=== PATIENT | male | born 1990 | race Caucasian/White ===

== ENCOUNTER 2024-02-17 11:26 | Inpatient (IN) | payer OTHER ==
[2024-02-17 11:57] VITALS: BMI 24.7
[2024-02-17] MEDS ORDERED: ACETAMINOPHEN 325 MG TABLET (FP) PO PRN ×2 (13:13→13:15)
[2024-02-17] MEDS ORDERED: IBUPROFEN 400 MG TABLET (FP) PO PRN ×2 (13:13→13:15)
[2024-02-17] MEDS ORDERED: POLYETHYLENE GLYCOL (HEALTHYLAX) 3350 17 GM PACKET PO PRN ×2 (13:13→13:15)
[2024-02-17] MEDS ORDERED: BENZONATATE 200 MG CAPSULE PO PRN (13:13)
[2024-02-17] MEDS ORDERED: NALOXONE HCL 0.4 MG/ML VIAL IM PRN ×2 (13:13→13:15)
[2024-02-17] MEDS ORDERED: guaiFENesin 600 MG TABLET.ER (FP) PO PRN ×2 (13:13→13:15)
[2024-02-17] MEDS ORDERED: IBUPROFEN 600 MG TABLET (FP) PO PRN ×2 (13:13→13:15)
[2024-02-17] MEDS ORDERED: ONDANSETRON *ODT* 4 MG TABLET SL PRN ×2 (13:13→13:15)
[2024-02-17] MEDS ORDERED: BISMUTH SUBSALICYLATE 524 MG/30 ML PO PRN ×2 (13:13→13:15)
[2024-02-17] MEDS ORDERED: DICYCLOMINE HCL 10 MG CAPSULE PO PRN ×2 (13:13→13:15)
[2024-02-17] MEDS ORDERED: LOPERAMIDE HCL 2 MG CAPSULE PO PRN ×2 (13:13→13:15)
[2024-02-17] MEDS ORDERED: MAG HYDROX/AL HYDROX/SIMETH 30 ML UNIT-DOSE CUP PO PRN ×2 (13:13→13:15)
[2024-02-17] MEDS ORDERED: NALOXONE HCL (KLOXXADO) 8 MG SPRAY NS PRN ×2 (13:13→13:15)
[2024-02-17] MEDS ORDERED: MAGNESIUM HYDROX 2400MG/30ML ORAL SUSPENSION 30 ML CUP PO PRN ×2 (13:13→13:15)
[2024-02-17] MEDS ORDERED: BENZOCAINE/MENTHOL (CHLORASEPTIC ) LOZENGE MM PRN (13:15)
[2024-02-17] MEDS ORDERED: METHOCARBAMOL 500 MG TABLET PO PRN (13:15)
[2024-02-17] MEDS ORDERED: hydrOXYzine PAMOATE 25 MG CAPSULE (FP) PO PRN (13:15)
[2024-02-17] MEDS: METHOCARBAMOL 500 MG TABLET PO PRN (14:34)
[2024-02-17] MEDS: cloNIDine HCL 0.1 MG TABLET PO SCH (14:34)
[2024-02-17] MEDS: methaDONE HCL 10 MG TABLET (FOR DETOX USE ONLY) PO ONE (14:35)
[2024-02-17] MEDS: BUPRENORPHINE/NALOXONE 0.5 MG/0.125 MG FILM SL ONE ×2 (14:37→22:15)
[2024-02-17] MEDS: hydrOXYzine PAMOATE 25 MG CAPSULE (FP) PO PRN (15:51)
[2024-02-17] MEDS ORDERED: THIAMINE 100 MG TABLET PO SCH (22:00)
[2024-02-17] MEDS ORDERED: MELATONIN 5 MG TABLETS PO SCH (22:00)
[2024-02-17] MEDS: MELATONIN 5 MG TABLETS PO SCH (22:14)
[2024-02-17] MEDS: THIAMINE 100 MG TABLET PO SCH (22:14)
[2024-02-18] MEDS: predniSONE 20 MG TABLET (UD) PO SCH (09:55)
[2024-02-18] MEDS: PRENATAL VITAMINS W/ FOLIC ACID TABLET (FP) PO SCH (09:55)
[2024-02-18] MEDS: BUPRENORPHINE/NALOXONE 0.5 MG/0.125 MG FILM SL SCH (09:56)
[2024-02-18] MEDS ORDERED: PRENATAL VITAMINS W/ FOLIC ACID TABLET (FP) PO SCH (10:00)
[2024-02-18 11:03] LABS: HEMATOCRIT 40.2 % (35.4-49); HEMOGLOBIN 13.1 GM/dL (11.7-16.9); MCH 27.7 pg (25.7-33.7); MCHC 32.6 g/dl (32.0-35.9); MEAN CELL VOLUME 84.7 fl (80-96); PLATELET COUNT 344 10^3/uL (134-434); RBC 4.75 M/mm3 (4.00-5.60); RDW 14.3 % (11.9-15.9); WHITE BLOOD COUNT 13.2 K/mm3 (4.0-10.0)
[2024-02-18 11:34] LABS: CHLORIDE 104 mmol/L (98-107); POTASSIUM 4.4 mmol/L (3.5-5.1); SODIUM 139 mmol/L (136-145)
[2024-02-18 11:44] LABS: ALBUMIN 3.4 g/dl (3.4-5.0); ANION GAP 4 mmol/L (4-13); BLOOD UREA NITROGEN 11.9 mg/dL (7-18); CO2 30 mmol/L (21-32); GLUCOSE,RANDOM 77 mg/dL (74-106)
[2024-02-18 11:45] LABS: SGOT/AST 10 U/L (15-37)
[2024-02-18 11:46] LABS: BILIRUBIN,TOTAL 0.7 mg/dL (0.2-1); TOT PROT 7.8 g/dl (6.4-8.2)
[2024-02-18 11:47] LABS: ALK PHOS 53 U/L (45-117); CREATININE 0.8 mg/dL (0.55-1.3); SGPT/ALT 26 U/L (13-61)
[2024-02-18 11:52] LABS: CALCIUM 9.5 mg/dL (8.5-10.1)
[2024-02-18 14:19] LABS: HIV INTERPRETATION NEGATIVE (NEGATIVE)
[2024-02-18] MEDS: GABAPENTIN 100 MG CAPSULE PO SCH (22:34)
[2024-02-19] MEDS: methaDONE HCL 10 MG TABLET (FOR DETOX USE ONLY) PO ONE (09:45)
[2024-02-19] MEDS: BUPRENORPHINE/NALOXONE 2 MG/0.5 MG FILM PACKET SL SCH (09:45)
[2024-02-19] MEDS: diazePAM 5 MG TABLET PO PRN (17:26)
[2024-02-20] MEDS: BUPRENORPHINE/NALOXONE 4 MG/1 MG FILM PACKET SL SCH (10:34)
[2024-02-21] MEDS: BENZOCAINE/MENTHOL (CHLORASEPTIC ) LOZENGE MM PRN (09:28)
[2024-02-21] MEDS: methaDONE HCL 10 MG TABLET (FOR DETOX USE ONLY) PO ONE (09:29)
[2024-02-21] MEDS: BUPRENORPHINE/NALOXONE 8 MG/2 MG FILM PACKET SL SCH (09:29)
[2024-02-21] MEDS ORDERED: GABAPENTIN 100 MG CAPSULE PO SCH (22:00)
[2024-02-22 09:24] VITALS: BP 114/72; PULSE 64; RESP 16; TEMP 96.7
[2024-02-22] MEDS: BUPRENORPHINE/NALOXONE 8 MG/2 MG FILM PACKET SL SCH (10:00)
== END 2024-02-22 10:18 | disposition home or self-care (01) | DRG 773 ==
LOC: YASAS 11:26 → Y3N 13:45
PROVIDERS: ADMIT Allergy & Immunology; ATTEND Surgery
PROC: HZ2ZZZZ Detoxification Services for Substance Abuse Treatment (ICD-10-PCS; principal; 2024-02-17)
DX: F11.23 Opioid dependence with withdrawal (principal); F13.20 Sedative, hypnotic or anxiolytic dependence, uncomplicated; F12.20 Cannabis dependence, uncomplicated; F19.24 Other psychoactive substance dependence with psychoactive substance-induced mood disorder; F41.9 Anxiety disorder, unspecified; K50.90 Crohn's disease, unspecified, without complications; Z87.891 Personal history of nicotine dependence
CPT/HCPCS: 36415; 80053; 80305; 80307; 85027; 86780; 86803; 87389